=== PATIENT | male | born 1965 | race Caucasian/White ===

== ENCOUNTER → 2021-05-07 | Outpatient (CLI) | payer OTHER ==
--- NOTE | 2021-05-07 15:50 | KCIC ---
RS Compliance Statement: One or more of the following individualized dose reduction techniques were utilized for this examinat ion: 1. Automated exposure control 2. Adjustment of the mA and/or kV according to patient size 3. Use of iterative reconstruction technique Coronary calcium score CT chest without contrast History: Diabetes, hypertension, hyperlipidemia. No family history of CAD. Technique: With retrospective electrocardiogram gating axial reconstructed noncontrast images of the chest at the level of the coronary arteries was performed. Images were post processed on workstation and calcium score calculated using the modified Agatston Janowitz protocol. Findings: Total coronary calcium score is 629.5. This is an extensive plaque burden and high cardiova scular disease risk. This is based on the calcium score of 0 of the left main coronary artery, score of 59.1 of the left anterior descending artery, score of 154.7 of the left circumflex artery and sco re of 415.7 of the right coronary artery. Noncoronary findings demonstrate normal caliber great vessels. Cardiac size is normal, no pericardial effusion. The visualized upper abdomen is unremarkable. No pleural abnormality is seen. The visualiz ed lungs are clear. IMPRESSION: Patient's total calcium score is 629.5. Electronically signed by: Gene Ang MD (05/07/2021 3:48 PM) [id number]
== END ==
LOC: KCIC CT 15:02
PROVIDERS: ATTEND Physician Assistant
DX: I25.10 Atherosclerotic heart disease of native coronary artery without angina pectoris (principal); E11.9 Type 2 diabetes mellitus without complications; I10 Essential (primary) hypertension; E78.5 Hyperlipidemia, unspecified
CPT/HCPCS: 75571